=== PATIENT | female | born 2000 | race Two or more races ===

== ENCOUNTER 2024-05-09 13:26 | Emergency (ER) | payer OTHER ==
[~2024-05-09] VITALS: Ht 165.1 cm; Wt 81.4 kg
--- NOTE | 2024-05-09 14:51 | ED.PDOC ---
History of Present Illness(SKN HPI Comments 23 y.o female presents to the ED for an evaluation of a sore to the nose bridge. Patient reports intermittent nose pain, broken blister, and erythema with swelling around the area. Patient reports drainage and scab x 1 day. Patient reports reoccurring scab presentation, states this is the third time it appears, has been seen for this but never got a diagnose. Patient denies any bleeding, numbness, recent picking, or history of skin issues. Chief Complaint: Abscess Time Seen by MD: 13:58 Primary Care Provider: NONE History of Present Illness: Nurses Notes, Medications, Allergies Allergies: Coded Allergies: NO KNOWN ALLERGIES (Unverified , 05/09/24) Information Source: Patient, Relative (Mother) Mode of Arrival: Ambulatory Timing: Days (1), Months Duration: Since onset Location: Nose Mechanism: Preceding Wound Object: None Wound Type: Unknown History of: None Associated Signs and Symptoms: Redness, Swelling Past Medical History PAST MEDICAL HISTORY: Denies Surgical History: Denies all surgeries SIGNS AND DISPLAYS SALESPERSON History: No Pertinent SIGNS AND DISPLAYS SALESPERSON History Social History Smoker: Non-Smoker Alcohol: Denies ETOH Use Drugs: Denies Drug Use Lives In: Home Constitutional: denies: chills, diaphoresis, fatigue, fever, malaise, sweats, weakness, others EENTM: denies: blurred vision, double vision, ear bleeding, ear discharge, ear drainage, ear pain, ear ringing, eye pain, eye redness, hearing loss, mouth pain, mouth swelling, nasal discharge, nose bleeding, nose congestion, nose pain, photophobia, tearing, throat pain, throat swelling, voice changes, others Respiratory: denies: cough, hemoptysis, orthopnea, SOB at rest, shortness of breath, SOB with excertion, stridor, wheezing, others Cardiovascular: denies: chest pain, dizzy spells, diaphoresis, Dyspnea on exertion, edema, irregular heart beat, left arm pain, lightheadedness, palpitations, PND, syncope, others Gastrointestinal: denies: abdomen distended, abdominal pain, blood streaked bowels, constipated, diarrhea, dysphagia, difficulty swallowing, hematemesis, melena, nausea, poor appetite, poor fluid intake, rectal bleeding, rectal pain, vomiting, others Genitourinary: denies: abnormal vagina bleeding, burning, dyspareunia, dysuria, flank pain, frequency, hematuria, incontinence, pain, , vagina discharge, urgency, others Neurological: denies: dizziness, fainting, headache, left sided numbness, left sided weakness, numbness, paresthesia, pre-existing deficit, right sided numbness, right sided weakness, seizure, speech problems, tingling, tremors, weakness, others Musculoskeletal: denies: back pain, gout, joint pain, joint swelling, muscle pain, muscle stiffness, neck pain, others Integumetry: reports: wounds (nosebridge swelling redness and broken blister ); denies: bruises, change in color, change in hair/nails, dryness, laceration, lesions, lumps, rash, others Allergic/Immunocompromised: denies: Difficulty Healing, Frequent Infections, Hives, Itching, others Hematologic/Lymphatic: denies: anemia, blood clots, easy bleeding, easy bruising, swollen glands, others Endocrine: denies: excessive hunger, excessive sweating, excessive thirst, excessive urination, flushing, intolerance to cold, intolerance to heat, unexplained weight gain, unexplained weight loss, others Psychiatric: denies: anxiety, bipolar disorder, depression, hopeless, panic disorder, schizophrenia, sleepless, suicidal, others All Other Systems: Reviewed and Negative Physical Exam General Appearance: No Apparent Distress, Normal HEENT: Normal ENT Inspection, Pharynx Normal, TMs Normal Neck: Full Range of Motion, Non-Tender, Normal, Normal Inspection Respiratory: Chest Non-Tender, Lungs Clear, No Accessory Muscle Use, No Respiratory Distress, Normal Breath Sounds Cardiovascular: No Edema, No JVD, No Murmur, No Gallop, Normal Peripheral Pulses, Regular Rate/Rhythm Breast Exam: Deferred Gastrointestinal: No Organomegaly, Non Tender, No Pulsatile Mass, Normal Bowel Sounds, Soft Genitalia: Deferred Pelvic: Deferred Rectal: Deferred Extremities: No calf tenderness, Normal capillary refill, Normal inspection, Normal range of motion, Non-tender, No pedal edema Musculoskeletal : Apperance: Normal Neurologic: Alert, negative spotter II-XII nml as Tested, No Motor Deficits, Normal Affect, Normal Mood, No Sensory Deficits Cerebellar Function: Normal Reflexes: Normal Skin: Wounds (nose bridge swelling, erythema to surrounding area and broken blisters. ) Lymphatic: No Adenopathy Was a procedure done? Was a procedure done?: No Differential Diagnosis (INTG) Differential Diagnosis: Cellulitis, Contact Dermatitis, Herpes Zoster/Simplex, Impetigo X-Ray, Labs, Meds, VS Vital Signs Date Time Temp Pulse Resp B/P (MAP) Pulse Ox O2 Delivery O2 Flow Rate FiO2 05/09/24 13:58 98.3 91 16 128/69 (88) 99 Time of 1ST Reevaluation: 14:46 Reevaluation 1ST: Unchanged Patient Education/Counseling: Diagnosis, Treatment, Prognosis, Need For Follow Up Family Education/Counseling: Diagnosis, Treatment, Prognosis, Need For Follow Up Additional Information Previous visit documents reviewed: None The following tests were ordered, and results were reviewed by me: None Additional Information was gathered from interviewing the following independent historians: None I reviewed and agreed with the following test results read by other providers: None I discussed treatment and results with medical personnel and: patient although the 2 singular blisters on the bridge of the nose is atypical for zoster, the recurrent nature makes zoster a potential differential. i will cover her with antibiotic for the cellulitic component and acyclovir for possible zoster Departure 1 Departure Time of Disposition: 15:27 Impression: Primary Impression: Blister Additional Impression: Cellulitis Qualified Codes: L03.211 - Cellulitis of face Disposition: 01 HOME / SELF CARE / HOMELESS Condition: Good e-Prescriptions Acyclovir (Acyclovir) 800 Mg Tab 800 MG PO 5XD for 7 Days, #35 TAB Prov: XENA NESS MD 05/09/24 Cephalexin Monohydrate (Cephalexin) 500 Mg Tab 1 TAB PO QID, #40 TAB Prov: XENA NESS MD 05/09/24 Discharged With: Self, Relative (Mother) Critical Care Note Critical Care Time?: No Stability Stability form required: No I personally scribed for XENA NSES MD ([email or web address]) on 05/09/24 at 14:51. Electronically submitted by Verónica Infante ([facility]). XENA NESS MD May 09, 2024 14:51
[2024-05-09] MEDS ORDERED: ACYC1TAB3 PO (15:29)
[2024-05-09] MEDS ORDERED: CEPH500T PO (15:29)
[2024-05-09 15:37] VITALS: BP 128/68; TEMP 98.2
[2024-05-09 15:46] VITALS: PULSE 92; RESP 17; O2SAT 97
== END 2024-05-09 15:47 | disposition home or self-care (01) ==
LOC: ER 13:26
DX: S00.32XA Blister (nonthermal) of nose, initial encounter (principal); J34.0 Abscess, furuncle and carbuncle of nose; X58.XXXA Exposure to other specified factors, initial encounter; Y93.89 Activity, other specified; Y92.89 Other specified places as the place of occurrence of the external cause; Y99.8 Other external cause status